=== PATIENT | male | born 1970 ===

== ENCOUNTER 2025-02-28 09:11 | Emergency (ER) | payer BC, SELFPAY ==
--- OUTSIDE RECORDS SUMMARY | 2025-02-28 09:13 | XMS_ITS | Clinical Summary ---
Author Organization [facility] Address [address] [place] [address] Care Team Providers Care Chief Client Officer Name Role Phone Ofe Abbott MD Primary Care Provider Allergies Active Allergy Reactions Criticality Noted Date Comments Nirmatrelvir-Ritonavir Anaphylaxis High 06/12/2024 Medications polyethylene glycol-electroly te (GOLYTELY) 236-22.74-6.74 -5.86 gram suspensionIndica tions:Encounter for screening colonoscopy Drink 2 liters the day before the procedure and 2 liters 6 hours prior to procedure. 4000 mL 4 Active Active Problems Problem Noted Date Diagnosed Date Adenomatous colon polyp 01/06/2019 Overview (01/06/2019): Colonoscopy 01/2019 polyp, repeat in 5 years Sensorineural hearing loss, unilateral 2 Immunizations Immunization Administration Dates Next Due AMB Influenza, IIV3 (Age >=3 years)(Flu Clinic Only) 08/12/2013 AMB Influenza, IIV4 PF (=>6 mos Flulaval,Fluzone Fluarix)(Flu Clinic Only) 07/29/2020,08/06/2015,08/17/2014 COVID-19 vaccine (Moderna 100mcg/0.5mL) PF, MDV 12/06/2020,11/08/2020 DTP 03/25/1973, 9,1968,1967 Hepatitis B (Adult) 03/13/1991,10/12/1990,1989 Influenza A (H1N1), Live Intranasal 09/01/2009 Influenza Virus, Unspecified 09/21/2014 Influenza, IIV3 (Age >=3 years) 08/12/2013,07/22 Influenza, IIV4 07/20/2023,,08/13/2019,2017,08/08/2017,08/07/2016,08/06/2015,1 Influenza,CCIIV4 PRESERV FREE 08/18/2022 MMR 03/21/1990 Measles 06/26/1969 Meningococcal, Unspecified 10/07/1992 Oral Polio Vaccine 03/25/1973, 9,1968,1967 Rubella 12/24/1969 Smallpox (Vaccinia) Live [id number] 03/13/1970, Td (Age >=7 Years) 06/17/2020,05/31/1989 Tdap 12/07/2009 Tuberculin (PPD) 08/07/2016,02/24/2014 Typhoid (oral) 08/12/2018 Zoster (Shingrix-RZV, recombinant) 11/12/2019, Family History Medical History Relation Name Comments Heart Disease Father afibrillation Heart Disease Maternal Grandfather Diabetes Mother Psychiatric illness Mother bipolar Thyroid Disease Mother Heart Disease Paternal Grandfather Thyroid Disease Sister hyperthyroid Relation Name Status Comments Father Maternal Grandfather Mother Paternal Grandfather Sister Social History Tobacco Use Types Packs/Day Years Used Date Smoking Tobacco: Never Smokeless Tobacco: Never Tobacco Cessation:Counseling Given: Yes Alcohol Use Standard Drinks/Week Comments Yes 0 (1 standard drink = 0.6 oz pur e alcohol) 6-8 drinks week PHQ-2 Answer Date Recorded PHQ-2 TOTAL SCORE 0 05/24/2023 Financial Resource Strain Answer Date R ecorded Difficulty of Paying Living Expenses Not on file 11/05/2021 Difficulty of Paying Living Expenses Not on file 11/05/2021 Sex and Gender Information Value Date Recorded Sex Assigned at Male 06/13/2020 9:18 PM CDT 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 Gender Identity Male 06/13/2020 9:18 PM CDT Sexual Orientation Straight 06/13/2020 9: 18 PM CDT Occupation Industry Job Start Date Job End Date Not on file Not on file Not on file Not on file Obstetrics History Last Filed Vital Signs Vital Sign Reading Time Taken Comments Blood Pressure 102/70 06/12/2024 9:54 AM CDT Pulse 86 06/12/2024 9:54 AM CDT Temperature 36.8 C (98.3 F) 08/08/2018 3:27 PM CDT Respiratory Rate 14 06/12/2024 9:54 AM CDT Oxygen Saturation 97% 06/12/2024 9:54 AM CDT Inhaled Oxygen Concentration - - Weight 78 kg (172 lb) 05/24/2023 8:01 AM CDT Height 181 cm (5' 11.26) 05/24/2023 8:01 AM CDT Body Mass Index 23.81 05/24/2023 8:01 AM CDT Plan of Treatment Health Maintenance Due Date Last Done Comments Pneumococcal series for age 50+ (1 of 1 - PCV) 2018 BMI (ht and wt on same day) for age 18+ 05/24/2024 05/24/2023, 08/26/2021, 08/30/2018, Additional history exists Depression screening for age 12+ 05/24/2024 05/24/2023, 08/30/2018, 08/08/2018 COVID-19 vaccine series ( season) 2024 08/16/2023, 07/09/2022, 02/10/2022, Additional history exists Influenza Vaccine (Season Ended) 2025 07/20/2023, 08/18/2022, 08/26/2021, Additional history exists Lipids for age 45-75 05/24/2028 05/24/2023, 08/27/2018, 09/23/2008 Colonoscopy through age 75 06/12/202906/12, 06/12/2024, 06/12/2024, Additional history exists Tetanus booster 06/17/2030 06/17/2020, 12/2009, 05/31/1989 Tdap Completed 12/07/2009 Zoster (shingles) series for age 50+ Completed 11/12/2019, 08/13/2019 HIV for age 15-65 Completed 05/24/2023 Hepatitis C screening for ag e 18-79 Completed 05/24/2023 Procedures Procedure Name Priority Date/Time Associated Diagnosis Comments COLONOSCOPY SCREENING Routine 06/12/2024 8:34 AM CDT History of colon polyps LC HIV-1/O/2, 4TH GENERATION Routine 05/24/2023 8:44 AM CDT Screening for HIV (human immunodeficiency virus) LC HCV ANTIBODY RFX TO QUANT PCR Routine 05/24/2023 8:44 AM CDT Need for hepatitis C screening test LIPID PANEL W REFLEX MEASURED LDL Routine 05/24/2023 8:44 AM CDT Lipid screening from Last 3 Months or Most Recently Relevant to Health Maintenance Results * COLONOSCOPY (06/12/2024 8:52 AM CDT) 06/12/2024 8:52 AM CDT Narrative Transcriptions Vlad Gomez MD - 06/12/2024 9:40 AM CDT Patient Name: Ruperto Patten Procedure Date: 06/12/2024 Gender: Male Date of : 1970 Admit Type: Outpatient Procedure: Colonoscopy Proceduralist: Vlad Gomez MD , Jaimee Gardner (Nurse), Ritu Rodríguez (Nurse) Referring MD: Ofe Abbott Indications/Pre-Op Diagnosis: High risk colon cancer surveillance:Personal history of sessile serrated colon polyp(less than 10 mm in size) with no dysplasia, Last colonoscopy: January 2019 Medications: Fentanyl 100 micrograms IV, Midazolam 4 mgIV, The level of sedation administered wasmoderate Procedure Description: The patient had risks, benefits and alternatives explained to andgave informed consent. The patient had a stable cardiopulmonary status and judged an adequate candidate for conscious sedation. The PCF-H190L [id number] was passed through the anus and advanced to the cecum, identified by appendiceal orifice and ileocecal valve. The colonoscopy was performed without difficulty. The patient toleratedthe procedure well. The quality of the bowel preparation was good. The ileocecal valve, appendiceal orifice, and rectum were photographed. Complications: No immediate complications. Estimated Blood Loss & Specimen: Estimated blood loss: none. Specimen collected - None Findings: The perianal and digital rectal examinations were normal. The entire examined colon appeared normal. Impressions/Post-Op Diagnosis: - The entire examined colon is normal. - No specimens collected. Recommendation: - Patient has a contact number available for emergencies. The signsand symptoms of potential delayed complications were discussed with the patient. Return to normal activities tomorrow. Written discharge instructions were provided to the patient. - Resume previous diet. - Continue present medications. - Repeat colonoscopy in 5 years for surveillance. Moderate Sedation: A time out was performed before the procedure. Moderate (conscious) sedation was administered by the endoscopy nurse and supervised bythe endoscopist. The following parameters were monitored: oxygensaturation, heart rate, blood pressure, EKG, CO2, respiratory rate, adequacy of pulmonary ventilation and reponse to care. Please refer to the patient's medical record flowsheets and nursing notes for moderate sedation details. Total physician intraservice time was 15 minutes. Vlad Gomez MD 06/12/2024 9:39:49 AM This report has been signed electronically. Note Initiated On: 06/12/2024 8:52 AM Procedure Code(s): --- Professional --- 55392, Colonoscopy, flexible; diagnostic, including collection of specimen(s) bybrushing or washing, when performed (separateprocedure) Diagnosis Code(s): --- Professional --- Z86.010, Personal history of colonicpolyps CPT copyright 2022 [employer]. All rights reserved. The codes documented in this report are preliminary and upon intelligence intern reviewmay be revised to meet current compliance requirements. Scope In: 9:18:41 AM Scope Withdrawal Time 0 hours 8 minutes 21 seconds Scope Out: 9:31:42 AM us Vlad Gomez MD PROCEDURE ORD Final Res ult * LC HCV ANTIBODY RFX TO QUANT PCR (05/24/2023 8:44 AM CDT) HCV Ab Non Reactive Non Reactive 05/26/2023 1:17 PM CDT [facility] ([facility]) Blood BLOOD SPECIMEN / Unknown Venipuncture / Unknown 05/24/2023 8:44 AM CDT 05/24/2023 8:45 AM CDT Narrative [facility] ([facility]) - 05/26/2023 1:17 PM CDT Performed at: [address] [place] [address] [place] [id number] Sound System Installer: Christiano Daigle MD, Phone: [phone] us Ofe Abbott MD LABORATORY Final Resul t [facility] ([facility]) [address] [place] [address], [place] * LC HIV-1/O/2, 4TH GENERATION (05/24/2023 8:44 AM CDT) HIV Scr 4th Gen Non Reactive Non Reactive 05/26/2023 12:07 PM CDT [facility] ([facility]) Comment: HIV Negative HIV-1/HIV-2 antibodies and HIV-1 p24 antigen were NOT detected. There is no laboratory evidence of HIV infection. Blood BLOOD SPECIMEN / Unknown Venipuncture / Unknown 05/24/2023 8:44 AM CDT 05/24/2023 8:45 AM CDT Narrative [facility] ([facility]) - 05/26/2023 12:07 PM CDT Performed at: 01 - [address] [id number] Sound System Installer: Christiano Daigle MD, Phone: [phone] us Ofe Abbott MD LABORATORY Final Resul t [facility] ([facility]) [facility] [place] [address], * LIPID PANEL W REFLEX MEASURED LDL (05/24/2023 8:44 AM CDT) [facility] CHOLESTEROL,TOTAL 183 100 - 199 mg/dL 05/24/2023 2:59 PM CDT [facility] Comment: Cholesterol, Total Reference Ranges Desirable <200 mg/dL Borderline 200-239 mg/dL High >=240 mg/dL TRIGLYCERIDES 66 <150 mg/dL 05/24/2023 2:59 PM CDT [facility] HDL CHOLESTEROL 79 >40 mg/dL 2:59 PM CDT [facility] NON-HDL CHOLESTEROL 104 <145 mg/dl 05/24/2023 2:59 PM CDT [facility] CHOL/HDL RATIO 2.32 <4.50 05/24/2023 2:59 PM CDT [facility] LDL CHOLESTEROL 91 <=130 mg/dL 05/24/2023 2:59 PM CDT [facility] VLDL CHOLESTEROL 13 <=30 mg/dL 05/24/2023 2:59 PM CDT [facility] PROVIDER ORDERED STATUS RANDOM 05/24/2023 2:59 PM CDT [facility] Blood BLOOD SPECIMEN / Unknown Venipuncture / Unknown 05/24/2023 8:44 AM CDT 05/24/2023 8:45 AM CDT Ofe Abbott MD CHEMISTRY Final Resul t [facility] [address] [place] [address], from Last 3 Months or Most Recently Relevant to Health Maintenance Insurance [facility] Care Teams Chief Client Officer Relationship Specialty Start Date End Date Ofe Abbott MD [address] [place] [address] PCP - General Family Practice 08/26/21
[2025-02-28 09:19] VITALS: BP 135/87; PULSE 102; RESP 20; TEMP 36.6; O2SAT 96; BMI 24.7
--- NOTE | 2025-02-28 09:48 | ED_ITS ---
HPI - General Adult General Chief complaint: Dental/Oral/Mouth Injury/Pain Stated complaint: facial swelling Time Seen by Provider: 02/28/25 09:39 History of Present Illness HPI narrative: This 54-year-old male comes in reporting some swelling of his tongue that he noticed upon awakening this morning. He states that he has had symptoms like this a few times in the past. He does have Zyrtec at home and had a couple tablets of prednisone which he has taken prior to arrival. He is not on an JOSE- inhibitor and is not on any other medications. He does not report any rash or other allergy symptoms. Related Data Home Medications ?Medication ?Instructions ?Recorded ?Confirmed cetirizine 10 mg tablet (Zyrtec) 10 mg PO QDAY PRN 03/08/24 02/28/25 Previous Rx's ?Medication ?Instructions ?Recorded prednisone 20 mg tablet 20 mg PO BID #20 tabs 02/28/25 Allergies Allergy/AdvReac Type Severity Reaction Status Date / Time nirmatrelvir (From Paxlovid) Allergy Verified 02/28/25 09:18 ritonavir (From Paxlovid) Allergy Verified 02/28/25 09:18 Review of Systems Status of ROS: Reports: 10 or more systems reviewed and unremarkable except as noted in History and below Narrative: Constitutional: No fevers, no weight gain or loss. Eyes: No discharge. No vision changes. HENT: No congestion, no sore throat, no ear pain. Cardiovascular: No chest pain, no palpitations. Respiratory: No shortness of breath, no wheezes, no cough. Gastrointestinal: No abdominal pain, no vomiting, no diarrhea. Genitourinary: No dysuria, no hematuria. Musculoskeletal: Normal range of motion. Skin: No rashes, no pruritis. Neurological: No dizziness, weakness, sensory change, speech change. Endo/Heme/Allergies: No bruising or bleeding. No polydipsia. Pysch: no suicidality, no anxiety, no insomnia. All other systems reviewed and are negative. Exam Narrative: Exam Narrative: Constitutional: Well-developed, well-nourished, no acute distress. HEENT: Normocephalic, atraumatic. Mild swelling of his tongue due to angioedema. His airway is patent without any sign of compromise. Neck: Normal range of motion. Nontender. Supple. Heart: Regular. No murmurs. Normal rate. Intact distal pulses. Lungs: Clear to auscultation. No chest discomfort. No wheezes, rhonchi, or rales. Abdomen: Normal bowel sounds. Nontender. No rebound tenderness. Genitalia: Deferred. Back: No midline tenderness. Normal range of motion. Extremities: Normal range of motion. No injury. Skin: Intact. No rash. Warm. No erythema or pallor. Neurologic: No altered sensation. No weakness. Alert and oriented. Psychiatric: No suicidality. No anxiety or depression. No insomnia. Nursing notes and vitals signs are reviewed. Const: Vital Signs, click to edit/add: Vital Signs - 24 hr 02/28/25 09:19 Temperature 97.8 F Pulse Rate [Pulse Oximeter] 102 H Respiratory Rate 20 Blood Pressure [Ri ght Upper Arm] 135/87 Pulse Oximetry 96 Oxygen Delivery Me thod Room Air Course Vital Signs Vital signs: Initial Vital Signs Temperature 97.8 F 02/28/25 09:19 Temperature Source Temporal Artery Scan 02/28/25 09:19 Pulse Rate 102 H 02/28/25 09:19 Respiratory Rate 20 02/28/25 09:19 Blood Pressure 135/87 02/28/25 09:19 Blood Pressure Mean 103 02/28/25 09:19 Pulse Oximetry 96 02/28/25 09:19 Oxygen Delivery Method Room Air 02/28/25 09:19 Vital Signs Temperature 97.8 F 02/28/25 09:19 Pulse Rate 102 H 02/28/25 09:19 Respiratory Rate 20 02/28/25 09:19 Blood Pressure 135/87 02/28/25 09:19 Pulse Oximetry 96 02/28/25 09:19 Oxygen Delivery Method Room Air 02/28/25 09:19 Temperature 97.8 F 02/28/25 09:19 Pulse Rate 102 H 02/28/25 09:19 Respiratory Rate 20 02/28/25 09:19 Blood Pressure 135/87 02/28/25 09:19 Pulse Oximetry 96 02/28/25 09:19 Oxygen Delivery Method Room Air 02/28/25 09:19 Medical Decision Making MDM Narrative Medical decision making narrative: This patient has some angioedema of his tongue which has occurred before. This is pollen induced or some other allergen induced angioedema. I reviewed information from an allergy lecture in this regard where there was recommenda tions to take prednisone and Lucía twice daily for 3 days and then continue with antihistamine through the season. I did provide prescription for prednisone 20 mg. I recommended using Lucía as apparently there is better results compared to Claritin or Zyrtec. Discharge Plan Discharge Clinical Impression: Angioedema of tongue Patient Disposition: Home, Self-Care Condition: Stable Additional Instructions: Take prednisone 20 mg twice daily for 3 days and use an antihistamine such as Lucía twice daily. Continue with antihistamine seasonally. Prescriptions: New prednisone 20 mg tablet 20 mg PO BID Qty: 20 0RF No Action cetirizine [Zyrtec] 10 mg tablet 10 mg PO QDAY PRN Follow Up/Referrals: Provider,Not a Local [Primary Care Provider] - Stand Alone Forms: [employer] Info Instructions
--- OUTSIDE RECORDS SUMMARY | 2025-02-28 10:07 | XMS_ITS | Clinical Summary ---
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 The PCF-H190L [id number] was passed through the anus and advanced [...] 8:52 AM Procedure Code(s): --- Professional --- 81548, Colonoscopy, flexible; diagnostic, including collection of specimen(s) bybrushing or washing, when performed (separateprocedure) Diagnosis Code(s): --- Professional --- Z86.010, Personal history of colonicpolyps CPT copyright 2022 [employer]. All rights reserved. The codes documented in this report are preliminary and upon coconut boiler reviewmay be revised to meet current compliance requirements. Scope In: 9:18:41 AM Scope Withdrawal Time 0 hours 8 minutes 21 seconds Scope Out: 9:31:42 AM us Vlad Gomez MD PROCEDURE ORD Final Res ult * LC HCV ANTIBODY RFX TO QUANT PCR (05/24/2023 8:44 AM CDT) HCV Ab Non Reactive Non Reactive 05/26/2023 1:17 PM CDT [facility] ([facility]) Blood BLOOD SPECIMEN / Unknown Venipuncture / Unknown 05/24/2023 8:44 AM CDT 05/24/2023 8:45 AM CDT Narrative [facility] ([facility]) - 05/26/2023 1:17 PM CDT Performed at: [address] [place] [address] [place] [id number] Engine Hostler: Christiano Daigle MD, Phone: [phone] us Ofe Abbott MD LABORATORY Final Resul t [facility] ([facility]) [address] [place] [id number], [place] * LC HIV-1/O/2, 4TH GENERATION (05/24/2023 8:44 AM CDT) HIV Scr 4th Gen Non Reactive Non Reactive 05/26/2023 12:07 PM CDT [facility] ([facility]) Comment: HIV Negative HIV-1/HIV-2 antibodies and HIV-1 p24 antigen were NOT detected. There is no laboratory evidence of HIV infection. Blood BLOOD SPECIMEN / Unknown Venipuncture / Unknown 05/24/2023 8:44 AM CDT 05/24/2023 8:45 AM CDT Narrative [facility] ([facility]) - 05/26/2023 12:07 PM CDT Performed at: 01 - [address] [id number] Engine Hostler: Christiano Daigle MD, Phone: [phone] us Ofe Abbott MD LABORATORY Final Resul t [facility] ([facility]) [facility] [place] [address], * LIPID PANEL W REFLEX MEASURED LDL (05/24/2023 8:44 AM CDT) [facility] CHOLESTEROL,TOTAL 183 100 - 199 mg/dL 05/24/2023 2:59 PM CDT [facility] Comment: Cholesterol, Total Reference Ranges Desirable <200 mg/dL Borderline 200-239 mg/dL High >=240 mg/dL TRIGLYCERIDES 66 <150 mg/dL 05/24/2023 2:59 PM CDT [facility] HDL CHOLESTEROL 79 >40 mg/dL 2:59 PM CDT [facility] NON-HDL CHOLESTEROL 104 <145 mg/dl 05/24/2023 2:59 PM CDT [facility] CHOL/HDL RATIO 2.32 <4.50 05/24/2023 2:59 PM CDT [facility] LDL CHOLESTEROL 91 <=130 mg/dL 05/24/2023 2:59 PM CDT [facility] VLDL CHOLESTEROL 13 <=30 mg/dL 05/24/2023 2:59 PM CDT [facility] PROVIDER ORDERED STATUS RANDOM 05/24/2023 2:59 PM CDT [facility] Blood BLOOD SPECIMEN / Unknown Venipuncture / Unknown 05/24/2023 8:44 AM CDT 05/24/2023 8:45 AM CDT Ofe Abbott MD CHEMISTRY Final Resul t [facility] [address] [place] [address], from Last 3 Months or Most Recently Relevant to Health Maintenance Insurance [facility] Care Teams Freelance Designer Relationship Specialty Start Date End Date Ofe Abbott MD [address] [place] [address] PCP - General Family Practice 08/26/21
[2025-02-28 10:10] VITALS: BP 126/74; PULSE 89; RESP 16; TEMP 36.6
== END 2025-02-28 10:11 | disposition home or self-care (01) ==
LOC: ED 10:04
PROVIDERS: Emergency Provider Emergency Medicine Emergency Medical Services; PCP Family Medicine
DX: T78.3XXA Angioneurotic edema, initial encounter (principal)
CPT/HCPCS: 99283; 99284